=== PATIENT | female | born 1945 | race Hispanic/Latino ===

== ENCOUNTER 2024-11-09 08:30 | Outpatient (CLI) | payer MEDICARE ==
[2024-11-09 09:24] LABS: Cardiac Risk 2.1 (Less than 4.5); Cholesterol 110.0 mg/dl (< 200 Desired); HDL Cholesterol 53.0 mg/dL (>60 Neg Risk); LDL Cholesterol, Calculated 45.0 mg/dL; Triglycerides 58.0 mg/dL (Less than 150)
== END 2024-11-09 08:31 | disposition home or self-care (01) ==
LOC: MADLAB 08:30
PROVIDERS: ATTEND Internal Medicine Cardiovascular Disease
DX: E78.00 Pure hypercholesterolemia, unspecified (principal)
CPT/HCPCS: 36415; 80061